=== PATIENT | female | born 1970 | race Caucasian/White ===

== ENCOUNTER 2019-02-10 11:59 | Day surgery (SDC) | payer OTHER ==
[~2019-02-10] VITALS: Ht 165.1 cm; Wt 101.0 kg
[2019-02-10] MEDS ORDERED: LACTATED RINGERS 1,000 ML IV SCH (12:48)
[2019-02-10] MEDS ORDERED: BUPR-173 PO (12:57)
[2019-02-10] MEDS ORDERED: TRAM50TA2 PO (12:57)
[2019-02-10] MEDS ORDERED: CLON1TAB23 PO (12:57)
[2019-02-10] MEDS ORDERED: ATOR20TA86 PO (12:57)
[2019-02-10] MEDS ORDERED: ESTR1TAB17 PO (12:57)
[2019-02-10] MEDS ORDERED: LEVO25TA4 PO (12:57)
[2019-02-10] MEDS ORDERED: [UNRECOGNIZED DRUG - OTHER] (12:57)
[2019-02-10 12:59] VITALS: BP 122/79
[2019-02-10] MEDS ORDERED: MIDAZOLAM 1 MG/ML, 2ML ONE ×2 (13:10→16:01)
[2019-02-10] MEDS ORDERED: FENTANYL PF 250 MCG/5ML ONE (13:10)
[2019-02-10 13:32] LABS: CULTURE INDICATED? YES; HCG UR SG 1.025 (1.003-1.030); MICROSCOPIC INDICATED
[2019-02-10] MEDS ORDERED: CEFAZOLIN 1,000 MG ONE ×2 (14:18)
[2019-02-10] MEDS ORDERED: ACETAMINOPHEN 325 MG TABLET PO PRN (14:30)
[2019-02-10] MEDS ORDERED: MIDAZOLAM 1 MG/ML, 2ML IV PRN (14:30)
[2019-02-10] MEDS ORDERED: hydrALAzine 20 MG/ML, 1ML IV PRN (14:30)
[2019-02-10] MEDS ORDERED: LABETALOL 5MG/ML, 20ML IV PRN (14:30)
[2019-02-10] MEDS ORDERED: ONDANSETRON 2MG/ML, 2ML IV PRN (14:30)
[2019-02-10] MEDS ORDERED: PROMETHAZINE 25 MG/ML, 1ML IV PRN (14:30)
[2019-02-10] MEDS ORDERED: MEPERIDINE/PF 25MG/0.5ML IVPush PRN (14:30)
[2019-02-10] MEDS ORDERED: OXYcodone 5 MG/5 ML ORAL.SOL UDC PO PRN (14:30)
[2019-02-10] MEDS ORDERED: ROCURONIUM 10MG/ML,5ML ONE (15:16)
[2019-02-10] MEDS ORDERED: DEXAMETHASONE 4 MG/ML, 5ML ONE (15:16)
[2019-02-10] MEDS ORDERED: ONDANSETRON 2MG/ML, 2ML ONE (15:16)
[2019-02-10] MEDS ORDERED: PROPOFOL 10 MG/ML, 20ML ONE (15:16)
[2019-02-10] MEDS ORDERED: FENTANYL PF 100 MCG/2ML ONE (15:39)
[2019-02-10] MEDS ORDERED: MORPHINE SULFATE 4 MG/ML, 1ML ONE (15:39)
[2019-02-10] MEDS: FENTANYL PF 100 MCG/2ML IV PRN ×2 (15:40→15:45)
[2019-02-10] MEDS ORDERED: OXYcodone 5 MG/5 ML ORAL.SOL UDC ONE (15:40)
[2019-02-10] MEDS: MORPHINE SULFATE 4 MG/ML, 1ML IVPush PRN ×4 (15:49→16:15)
[2019-02-10] MEDS ORDERED: morphine SULFATE 10 MG/ML, 1ML ONE (15:53)
[2019-02-10] MEDS ORDERED: hydrOXYzine 25 MG/ML IM PRN (17:00)
[2019-02-10] MEDS ORDERED: hydrOXYzine 50 MG/ML IM PRN (18:00)
[2019-02-10 18:27] VITALS: BP 128/67
[2019-02-10 18:31] VITALS: BP 129/77
[2019-02-10] MEDS ORDERED: ONDANSETRON 2MG/ML, 2ML IVPush PRN (19:00)
[2019-02-10] MEDS: OXYBUTYNIN CHLORIDE 5 MG TABLET PO SCH ×2 (20:10→20:11)
[2019-02-10] MEDS: KETOROLAC 30 MG/1 ML IVPush PRN (20:10)
[2019-02-10] MEDS: PHENAZOPYRIDINE 100 MG TABLET PO SCH (20:10)
[2019-02-10] MEDS: BUPROPION 75 MG TABLET PO SCH (20:11)
[2019-02-10] MEDS ORDERED: ATORVASTATIN 20 MG TABLET PO SCH (21:00)
[2019-02-10] MEDS: LACTATED RINGERS 1,000 ML IV SCH (21:57)
[2019-02-10] MEDS: OXYcodone/APAP 5/325MG TABLET PO PRN (23:34)
[2019-02-11 00:19] VITALS: BP 106/57
[2019-02-11] MEDS: KETOROLAC 30 MG/1 ML IVPush PRN ×2 (02:08→08:55)
[2019-02-11 04:01] VITALS: BP 102/68
[2019-02-11] MEDS: OXYcodone/APAP 5/325MG TABLET PO PRN ×3 (05:43→12:15)
[2019-02-11] MEDS ORDERED: LEVOTHYROXINE 50 MCG TABLET PO SCH (06:00)
[2019-02-11 06:51] VITALS: BP 111/75
[2019-02-11] MEDS: PHENAZOPYRIDINE 100 MG TABLET PO SCH (08:54)
[2019-02-11] MEDS: OXYBUTYNIN CHLORIDE 5 MG TABLET PO SCH ×2 (08:55)
[2019-02-11] MEDS: BUPROPION 75 MG TABLET PO SCH (08:56)
[2019-02-11] MEDS: LACTATED RINGERS 1,000 ML IV SCH (08:57)
[2019-02-11] MEDS ORDERED: ESTRADIOL 1 MG TABLET PO SCH (09:00)
[2019-02-11] MEDS ORDERED: BISACODYL 10 MG SUPP PR PRN (12:30)
[2019-02-11 13:52] VITALS: BP 107/70
[2019-02-11] MEDS ORDERED: OXYC-302 PO (14:45)
[2019-02-11] MEDS ORDERED: DOCU-131 PO (14:45)
[2019-02-11] MEDS ORDERED: DIAZ2TAB PO (14:46)
[2019-02-11 15:35] VITALS: BP 114/69
[2019-02-11] MEDS ORDERED: DOCUSATE 100 MG CAPSULE PO SCH (21:00)
== END 2019-02-11 16:10 | disposition home or self-care (01) ==
LOC: OUT 11:59 → 4NOR 18:13 → UNDOADMOB 18:23 → OUT 18:23 → 4NOR 18:23 → OUT 02-11 16:10
PROVIDERS: ATTEND Urology
DX: N20.2 Calculus of kidney with calculus of ureter (principal); F32.9 Major depressive disorder, single episode, unspecified; F41.9 Anxiety disorder, unspecified
CPT/HCPCS: 52356; 74018; 76000; 81001; 81025; 82360; 87086; 88300; C1758; C2617; J0690; J1100; J1885; J2250; J2405; J2704; J3010; J3410; J7120

== ENCOUNTER 2020-04-23 08:17 | Inpatient (IN) | payer OTHER ==
[~2020-04-23] VITALS: Ht 165.1 cm; Wt 90.3 kg
[~2020-04-23 08:17] MED LIST: ATOR20TA86 PO; BUPR-173 PO; CLON1TAB23 PO; DIAZ2TAB PO; DOCU-131 PO; ESTR1TAB17 PO; LEVO25TA4 PO; OXYC-302 PO; TRAM50TA2 PO; [UNRECOGNIZED DRUG - OTHER]
[2020-04-23] MEDS ORDERED: SODIUM CHLORIDE FLUSH 10ML SYR IVF ONE (08:30)
--- NOTE | 2020-04-23 08:33 | NUR ---
PT STATES NO PAIN AT THIS TIME BUT ITCHY AFTER GETTING [facility]IL[facility] AT [facility]
[2020-04-23] MEDS ORDERED: DOXY75TA13 PO (08:36)
[2020-04-23] MEDS ORDERED: DULO60CA7 PO (08:36)
[2020-04-23] MEDS ORDERED: LEVO125T5 PO (08:36)
[2020-04-23] MEDS ORDERED: FASTIN (08:38)
[2020-04-23] MEDS ORDERED: METH750T87 PO (08:38)
[2020-04-23] MEDS ORDERED: hydrOXYzine 25 MG/ML IM STA (09:24)
[2020-04-23 09:37] LABS: MICROSCOPIC INDICATED
[2020-04-23] MEDS ORDERED: KETOROLAC 30 MG/1 ML ONE (09:56)
[2020-04-23] MEDS ORDERED: KETOROLAC 30 MG/1 ML IVPush ONE (10:00)
--- NOTE | 2020-04-23 10:23 | NUR ---
MEDICATED NOTED ON JAN FOR CONTINUED ITCHING AND RETURNING RIGHT SIDE PAIN. REPORT TO [id number] AND PT TRANSPORTED TO FLOOR
[2020-04-23] MEDS ORDERED: CEFTRIAXONE PMX 1GM/50ML 50 ML IVPB ONE (10:30)
[2020-04-23 11:00] VITALS: BP 93/58
[2020-04-23] MEDS ORDERED: ONDANSETRON 2MG/ML, 2ML IVPush PRN (12:00)
[2020-04-23] MEDS ORDERED: KETOROLAC 30 MG/1 ML IM SCH (12:00)
[2020-04-23] MEDS: SODIUM CHLORIDE 0.45% 1,000 ML IV SCH (12:26)
[2020-04-23 12:34] LABS: INTERNATIONAL NORMALIZED RATIO 0.99 (0.93-1.1); PROTHROMBIN TIME 10.5 Seconds (9.6-11.5)
[2020-04-23] MEDS: CEFTRIAXONE PMX 1GM/50ML 50 ML IV SCH (12:41)
[2020-04-23 12:54] VITALS: BP 103/68
[2020-04-23] MEDS ORDERED: MIDAZOLAM 1 MG/ML, 2ML ONE (15:45)
[2020-04-23] MEDS ORDERED: FENTANYL PF 100 MCG/2ML ONE ×2 (15:45→18:02)
[2020-04-23] MEDS ORDERED: OMNIPAQUE 350 MG/ML, 50 ML BOTTLE ONE (17:00)
[2020-04-23] MEDS ORDERED: DEXAMETHASONE 4 MG/ML, 1ML ONE (17:25)
[2020-04-23] MEDS ORDERED: ONDANSETRON 2MG/ML, 2ML ONE (17:25)
[2020-04-23] MEDS ORDERED: LIDOCAINE-MPF 2% ,5ML ONE (17:25)
[2020-04-23] MEDS ORDERED: PROPOFOL 10 MG/ML, 20ML ONE (17:25)
[2020-04-23] MEDS ORDERED: morphine SULFATE 10 MG/ML, 1ML IVPush PRN (17:30)
[2020-04-23] MEDS ORDERED: ALBUTEROL SULFATE 2.5 MG/3 ML NPPB PRN (17:30)
[2020-04-23] MEDS ORDERED: LABETALOL 5MG/ML, 20ML IV PRN (17:30)
[2020-04-23] MEDS ORDERED: ACETAMINOPHEN 325 MG TABLET PO PRN (17:30)
[2020-04-23] MEDS ORDERED: MEPERIDINE/PF 25MG/0.5ML IVPush PRN (17:30)
[2020-04-23] MEDS ORDERED: OXYcodone 5 MG/5 ML ORAL.SOL UDC PO PRN (17:30)
[2020-04-23] MEDS ORDERED: MIDAZOLAM 1 MG/ML, 2ML IV PRN (17:30)
[2020-04-23] MEDS ORDERED: PROMETHAZINE 25 MG/ML, 1ML IVPush PRN (17:30)
[2020-04-23] MEDS ORDERED: OPIUM/BELLADONNA SUPP.RECT 16.2-60 MG ONE (17:51)
[2020-04-23] MEDS: OPIUM/BELLADONNA SUPP.RECT 16.2-60 MG PR PRN (18:03)
[2020-04-23] MEDS: FENTANYL PF 100 MCG/2ML IV PRN ×4 (18:15→18:33)
[2020-04-23] MEDS: GEMFIBROZIL 600 MG TABLET PO SCH (20:04)
[2020-04-23] MEDS: KETOROLAC 30 MG/1 ML IVPush PRN (20:04)
[2020-04-23] MEDS: BUPROPION 75 MG TABLET PO SCH (20:04)
[2020-04-23] MEDS: PHENAZOPYRIDINE 200 MG TABLET PO PRN (20:04)
[2020-04-23] MEDS: ACETAMINOPHEN 325 MG TABLET PO PRN (22:25)
[2020-04-23] MEDS: METHOCARBAMOL 750 MG TABLET PO PRN (23:40)
[2020-04-24 01:35] VITALS: BP 104/71
[2020-04-24] MEDS: OPIUM/BELLADONNA SUPP.RECT 16.2-60 MG PR PRN ×2 (02:12→20:35)
[2020-04-24] MEDS: KETOROLAC 30 MG/1 ML IVPush PRN ×3 (02:14→17:37)
[2020-04-24] MEDS: SODIUM CHLORIDE 0.45% 1,000 ML IV SCH ×2 (02:15→06:14)
[2020-04-24] MEDS: PHENAZOPYRIDINE 200 MG TABLET PO PRN ×3 (05:20→20:35)
[2020-04-24] MEDS: ACETAMINOPHEN 325 MG TABLET PO PRN (05:20)
[2020-04-24 05:41] LABS: BASOPHILS # (AUTO) 0.02 x10^3/uL (0-0.1); BASOPHILS % (AUTO) 0 % (0-1); EOSINOPHILS % (AUTO) 0 % (1-7); LYMPHOCYTES # (AUTO) 1.14 x10^3/uL (1-3.4); LYMPHOCYTES % (AUTO) 17 % (22-44); MD NO; MEAN CORPUSCULAR HEMOGLOBIN 28.2 pg (27.0-34.8); MEAN CORPUSCULAR HGB CONC 32.5 g/dL (32.4-35.8); MEAN CORPUSCULAR VOLUME 86.6 fL (80-100); MEAN PLATELET VOLUME 7.9 fL (7.4-10.4); MONOCYTES # (AUTO) 0.46 x10^3/uL (0.2-0.8); MONOCYTES % (AUTO) 7 % (2-9); NEUTROPHILS # (AUTO) 5.27 x10^3/uL (1.8-6.8); NEUTROPHILS % (AUTO) 77 % (42-75); PLATELET COUNT 326 x10^3/uL (130-400); RED BLOOD COUNT 4.54 x10^6/uL (3.82-5.3); RED CELL DISTRIBUTION WIDTH 13.3 % (9.6-15.2)
[2020-04-24 05:55] LABS: ANION GAP 5 mmol/L (5-15); CHLORIDE 107 mmol/L (98-107); CREATININE 1.14 mg/dL (0.55-1.02)
[2020-04-24] MEDS ORDERED: LEVOTHYROXINE 75 MCG TABLET PO SCH (06:00)
[2020-04-24 07:38] VITALS: BP 114/81
[2020-04-24] MEDS: ENOXAPARIN 40 MG/0.4 ML SQ SCH (09:00)
[2020-04-24] MEDS: METHOCARBAMOL 750 MG TABLET PO PRN (09:28)
[2020-04-24] MEDS ORDERED: LEVOTHYROXINE 25 MCG TABLET ONE (09:49)
[2020-04-24] MEDS ORDERED: LEVOTHYROXINE 50 MCG TABLET ONE (09:50)
[2020-04-24] MEDS: BUPROPION 75 MG TABLET PO SCH ×2 (10:03→20:18)
[2020-04-24] MEDS: DULOXETINE 30 MG CAPSULE.DR PO SCH (10:03)
[2020-04-24] MEDS: GEMFIBROZIL 600 MG TABLET PO SCH ×2 (10:03→20:18)
[2020-04-24] MEDS: CEFTRIAXONE PMX 1GM/50ML 50 ML IV SCH (13:22)
[2020-04-24 13:44] VITALS: BP 108/62
[2020-04-24] MEDS ORDERED: OXYcodone IR 5MG TABLET PO PRN (15:00)
[2020-04-24 15:03] LABS: FREE T4 (FREE THYROXINE) 1.63 ng/dL (0.76-1.46)
[2020-04-24 19:15] VITALS: BP 122/83
[2020-04-24] MEDS: METHOCARBAMOL 750 MG TABLET PO SCH (20:18)
[2020-04-24] MEDS: OXYBUTYNIN CHLORIDE 5 MG TABLET PO SCH (20:18)
[2020-04-25] MEDS: KETOROLAC 30 MG/1 ML IVPush PRN ×2 (01:23→09:10)
[2020-04-25 01:30] VITALS: BP 133/85
[2020-04-25] MEDS ORDERED: LEVOTHYROXINE 50 MCG TABLET PO SCH (06:00)
[2020-04-25 07:46] VITALS: BP 109/70
[2020-04-25] MEDS: BUPROPION 75 MG TABLET PO SCH (07:56)
[2020-04-25] MEDS: OXYBUTYNIN CHLORIDE 5 MG TABLET PO SCH (07:56)
[2020-04-25] MEDS: GEMFIBROZIL 600 MG TABLET PO SCH (07:56)
[2020-04-25] MEDS: METHOCARBAMOL 750 MG TABLET PO SCH (07:56)
[2020-04-25] MEDS: ENOXAPARIN 40 MG/0.4 ML SQ SCH (07:57)
[2020-04-25] MEDS: DULOXETINE 30 MG CAPSULE.DR PO SCH (07:57)
[2020-04-25] MEDS ORDERED: LEVO50TA PO (09:46)
[2020-04-25] MEDS ORDERED: OXYB5TAB10 PO (09:48)
[2020-04-25] MEDS: CEFTRIAXONE PMX 1GM/50ML 50 ML IV SCH (11:43)
[2020-04-25 12:45] VITALS: BP 135/86
== END 2020-04-25 16:46 | disposition home or self-care (01) | DRG 660 ==
LOC: ED 10:11 → EDIP 10:57 → 3WST 11:00
PROVIDERS: ADMIT Family Medicine; ATTEND Family Medicine
PROC: 0TC78ZZ Extirpation of Matter from Left Ureter, Via Natural or Artificial Opening Endoscopic (ICD-10-PCS; 2020-04-23)
PROC: 0TC68ZZ Extirpation of Matter from Right Ureter, Via Natural or Artificial Opening Endoscopic (ICD-10-PCS; 2020-04-23)
PROC: BT141ZZ Fluoroscopy of Kidneys, Ureters and Bladder using Low Osmolar Contrast (ICD-10-PCS; 2020-04-23)
PROC: 0T788DZ Dilation of Bilateral Ureters with Intraluminal Device, Via Natural or Artificial Opening Endoscopic (ICD-10-PCS; principal; 2020-04-23 15:30)
DX: N13.6 Pyonephrosis (principal); N13.8 Other obstructive and reflux uropathy; E03.9 Hypothyroidism, unspecified; E78.1 Pure hyperglyceridemia; F32.9 Major depressive disorder, single episode, unspecified; R09.02 Hypoxemia; Z82.49 Family history of ischemic heart disease and other diseases of the circulatory system
CPT/HCPCS: 36415; 74420; 99285; J3490; 71045; 80048; 81001; 82360; 84439; 84443; 84481; 85025; 85610; 87040; 87086; 88300; G0378; J0696; J1100; J1650; J1885; J2250; J2405; J2704; J3010; Q9967; C1769; C2617; J3410